=== PATIENT | male | born 1960 | race Caucasian/White ===

== ENCOUNTER 2023-05-18 06:15 | Day surgery (SDC) | payer MEDICAID ==
[~2023-05-18] VITALS: Ht 172.7 cm; Wt 113.6 kg
[~2023-05-18 06:15] MED LIST: ASPI-1450 PO; DAPA10TA PO; FERR325T27 PO; FURO20 PO; OMEP20 PO; SEMA2PEN SQ; SODIUM CHLORIDE 0.9% 1,000 ML ONE
[2023-05-18] MEDS: SODIUM CHLORIDE 0.9% 1,000 ML IV ONE (07:09)
[2023-05-18 07:21] LABS: GLUCOMETER DEV NAME(LOC) SDS.; GLUCOSE,POINT OF CARE 278 MG/DL (70-110)
[2023-05-18] MEDS ORDERED: LIDOCAINE/PF 2% 5 ML VIAL IM ONE (12:00)
[2023-05-18] MEDS ORDERED: PROPOFOL 1% 20 ML VIAL IVP ONE (12:00)
[2023-05-18] MEDS ORDERED: OXYGEN THERAPY IH SCH (20:00)
== END 2023-05-18 10:25 | disposition home or self-care (01) ==
LOC: SURGERY 06:15 → EEVIPCON 08:00 → SURGERY 10:25
PROVIDERS: ATTEND Specialist
DX: K31.84 Gastroparesis (principal); K29.70 Gastritis, unspecified, without bleeding; I10 Essential (primary) hypertension; E11.9 Type 2 diabetes mellitus without complications; Z79.82 Long term (current) use of aspirin; Z79.899 Other long term (current) drug therapy; Z91.018 Allergy to other foods; Z86.73 Personal history of transient ischemic attack (TIA), and cerebral infarction without residual deficits; Z87.11 Personal history of peptic ulcer disease
CPT/HCPCS: 43239; 93005; 82962; 88305; 88312; 88313; C1769; J2704; J3490; J7030